=== PATIENT | female | born 1995 | race American Indian/Alaskan Native ===

== ENCOUNTER 2017-01-01 18:08 | Emergency (ER) | payer SELFPAY ==
[2017-01-01 18:29] VITALS: BP 115/65
[2017-01-01 21:07] LABS: Bilirubin,Urine NEG (Negative); Blood,Urine NEG (Negative); Ketones,Urine NEG (Negative); Leukocyte Esterase,Urine SM (Negative); Mucus,Urine 1+ /HPF; Nitrite,Urine NEG (Negative); Protein,Urine <15 mg/dL mg/dL (Negative); Urobilinogen,Urine < 2.0 mg/dL (<2.0)
--- NOTE | 2017-01-05 15:02 | ED Elopement Review ---
ED Pt Elopement review - Results review Lab results: Laboratory Tests 01/01/17 01/01/17 18:31 20:15 HCG, Quant 37405 H Urine Color Yellow Urine Turbidity Slightly-cloudy Urine pH 6.0 Ur Specific [place] 1.024 Urine Protein <15 mg/dl Urine Glucose (UA) Neg Urine Ketones Neg Urine Blood Neg Urine Nitrite Neg Urine Bilirubin Neg Urine Urobilinogen < 2.0 Ur Leukocyte Esterase Sm Urine WBC (Auto) 15.0 H Urine RBC (Auto) 4.0 U Epithel Cells (Auto) 16.0 H Urine Mucus 1+ - Call Back decision Pt Call Back Decision: Call pt to return to ED SAGE (positive with abdominal pain she be further evaluated. Consider pelvic ultrasound)
== END 2017-01-02 06:33 | disposition left against medical advice (07) ==
LOC: ED 18:08
DX: Z53.21 Procedure and treatment not carried out due to patient leaving prior to being seen by health care provider (principal)
CPT/HCPCS: 36415; 81001; 84702